=== PATIENT | female | born 2000 | race Caucasian/White ===

== ENCOUNTER 2025-01-26 14:14 | Emergency (ER) | payer BC, SELFPAY ==
--- OUTSIDE RECORDS SUMMARY | 2025-01-26 14:18 | XMS_ITS | Clinical Summary ---
Author Organization [facility] Address [address] [place] [address] Care Team Providers Care Friction Welding Machine Operator Name Role Phone SriramElham ríos Primary Care Provider [phone]- [phone] Allergies No known active allergies Medications sulfacetamide sodium-sulfur (SUMAXIN) 8-4 % suspension WASH TO AFFECTED AREA ON BODY ONCE DAILY LATHER AND LET SIT FOR SEVERAL MINUTES BEFORE RINSING 2 Active loratadine (CLARITIN) 10 mg tablet Take 1 Tablet (10 mg) by mouth once daily. 4 Active escitalopram oxalate (LEXAPRO) 20 mg tabletIndication s:Anxiety,Depres júnior, unspecified depression type Take 1 Tablet (20 mg) by mouth at bedtime. 90 Tablet 5 Active famotidine (PEPCID) 20 mg tabletIndication s:Increased stomach acid Take 1 Tablet (20 mg) by mouth 2 times daily if needed for GI Upset or Heartburn. 60 Tablet 1 5 Active Hospital, Clinic, or Other Facility Administered Medication Ordered Dose Route Frequency Start Date End Date Status levonorgestreL (KYLEENA) intrauterine (5 years) IUD 1 DeviceIndications: contraception 1 Device IU Q 5 YEARS 05/12/2021 Active Active Problems Problem Noted Date Diagnosed Date Pap smear for cervical cancer screening 04/15/20 24 Overview (04/15/2024): 03/2024 NIL Plan: Pap due 03/2027 Increased stomach acid 02/24/2021 Overview (02/24/2021): (+) Shields test in 2019 at [place] [facility] Dysmenorrhea 02/24/2021 Acne vulgaris 02/24/2021 Resolved Problems Problem Noted Date Diagnosed Date Resolved Date Fracture of finger, proximal, closed 09/10/2013 08/01/2024 Encounters Date Type Department Care Team Description 01/26/2025 Nurse Triage [facility] [address] [place] [address] Elham Bhatia, DO Abdominal Pain 01/20/2025 Refill [facility] [address] [place] [address] Elham Bhatia, Refill Request (Escitalopram 10mg) 12/24/2024 Refill [facility] [address] [place] [address] Elham Bhatia, Refill Request (Famotidine) 11/26/2024 3:40 PM TUNGSTEN TENDER Telemedicine [facility] [address] [place] [address] Elham Bhatia, DO Depression (Lexapro 10 mg, pantoprazole 40 mg as needed) 11/21/2024 Travel 11/05/2024 Travel from Last 3 Months Immunizations Immunization Administration Dates Next Due COVID-19 vaccine (Aerovance-Bio NTech 30mcg/0.3mL) 12YO+ BIVALENT PF, MDV 06/13/2023 DTaP 02/12/2008, 4,06/01/2003,04/02,01/19/2003 HIB-HepB (Comvax) 03/08/2004,04/02/2003,01/20/20 03 HPV 9 (Gardasil 9) 04/21/2016,06/02/2015 Hepatitis A (Peds) 09/04/2018,04/21/2016 Human Papilloma Virus Vaccine 04/23/2015 INFLUENZA, IIV3 PF (AGE >= 6 MO) 08/01/2024 Inactivated Polio Vaccine 02/12/2008,01/2003,04/02/2003,01/19 Influenza A (H1N1), Live Intranasal 11/08/2009,1 11/16/2008 Influenza, IIV3 (Age >=3 years) 10/12/2010,09/09 Influenza, IIV4 07/04/2023,09/16/2019,08/15/2018 MENINGOCOCCAL VACCINE 2 VIAL 2MO-55YO (MENVEO) 09/16/2019,04/23/2015 MMR 02/12/2008,12/10/2003 Pneumococcal conj 7-Valent (Prevnar 7) 3,04/02/2003,01/19/2003 Tdap 04/23/2015 Varicella Vaccine 04/23/2015,12/10/2003 Family History Medical History Relation Name Comments Good Health Brother Good Health Father Celiac disease Mother Relation Name Status Comments Brother Father Mother Social History Tobacco Use Types Packs/Day Years Used Date Smoking Tobacco: Never Smokeless Tobacco: Never Tobacco Cessation:Counseling Given: Yes Alcohol Use Standard Drinks/Week Comments Yes 0 (1 standard drink = 0.6 oz pur e alcohol) once per week PHQ-2 Answer Date Recorded PHQ-2 TOTAL SCORE 0 11/26/2024 Social Connections Answer Date Recorded Do you often feel lonely or isolated from those around you? 0 02/11/2024 Financial Resource Strain Answer Date R ecorded Difficulty of Paying Living Expenses 3 02/11/2024 Difficulty of Paying Living Expenses Not on file 02/11/2024 Food Insecurity Answer Date Recorded Do you worry your food will run out before you are able to buy more? 1 02/11/2024 Transportation Needs Answer Date Record ed Does lack of transportation keep you from medica l appointments? 1 02/11/2024 Does lack of transportation keep you from work, meetings or getting things that you need? 1 02/11/2024 Housing Stability Answer Date Recorded What is your housing situation today? 1 02/11/2024 Utilities Answer Date Recorded Do you have trouble paying f or utilities (for example, heat, electricity, water, phone)? 1 02/11/2024 Comments No Sex and Gender Information Value Date Recorded Sex Assigned at Not on file Legal Sex Female 5:49 AM TUNGSTEN TENDER Gender Identity Not on file Sexual Orientation Not on file Obstetrics History Last Filed Vital Signs Vital Sign Reading Time Taken Comments Blood Pressure 104/72 08/01/2024 10:23 AM CDT Pulse 99 08/01/2024 10:23 AM CDT Temperature 37.1 C (98.7 F) 09/16/2021 10:50 AM TUNGSTEN TENDER Respiratory Rate - - Oxygen Saturation 99% 04/04/2024 3:01 PM CDT Inhaled Oxygen Concentration - - Weight 60.1 kg (132 lb 9.6 oz) 08/01/2024 10:23 AM CDT Height 175.6 cm (5' 9.13) 04/04/2024 3:01 PM CD T Body Mass Index 19.51 04/04/2024 3:01 PM CDT Plan of Treatment Health Maintenance Due Date Last Done Comments COVID-19 vaccine series () 06/29/2024 06/13/2023 BMI (ht and wt on same day) for age 18+ 04/04/2025 04/04/2024, 05/05/2021 Chlamydia for age 16-24 04/04/2025 04/04/20 24, 05/31/2022, 05/05/2021 Tetanus booster 04/23/2025 04/23/2015 Depression screening for age 12+ 11/26/2025 11/26/2024, 08/01/2024, 07/04/2024, Additional history exists Pap test for age 21-65 04/04/2027 04/04/2024 Pneumococcal series for age 6-49 Aged Out 06/01/2003, 04/02/2003, 01/19/2003 No longer eligible based on patient's age to complete this topic Tdap Completed 04/23/2015 HPV series for age 9-26 Completed 04/21/20 16, 06/02/2015, 04/23/2015 HIV for age 15-65 Completed 04/04/2024 Hepatitis C screening for age 18-79 Completed 04/04/2024 Influenza Vaccine Completed 08/01/2024, , 09/16/2019, Additional history exists Procedures Procedure Name Priority Date/Time Associated Diagnosis Comments ANTI HIV 1/2 Routine 04/04/2024 3:36 PM CDT Screening for HIV (human immunodeficiency virus) ANTI HCV Routine 04/04/2024 3:36 PM CDT Need for hepatitis C screening test GC CHLAMYDIA TRACH PROBE Routine 04/04/2024 3:22 PM CDT Screening for chlamydial disease MEDICAL/SURGERY REGISTERED NURSE THIN PREP PAP SCREEN IMAGED Routine 04/04/2024 3:22 PM CDT Screening for cervical cancer from Last 3 Months or Most Recently Relevant to Health Maintenance Results * ANTI HCV (04/04/2024 3:36 PM CDT) Pathologist [facility] HEPATITIS C ANTIBODY Non-Reacti ve Non-React nirmala 04/04/2024 10:25 PM CDT [facility] Comment:Please note, per www .CDC.gov: If a patient is known to be at high risk of HCV infection, or is symptomatic, and the physician's suspicion of HCV infection is high, HCV RNA testing is often employed and is of diagnostic value, even after an initial negative anti-HCV test result. Blood BLOOD SPECIMEN / Unknown Venipuncture / Unknown 04/04/2024 3:36 PM CDT 04/04/2024 3:36 PM CDT [employer] Sophia VASQUEZ SEND OUTS Final Result Performing Organization Address City/[facility] Co de Phone Number [facility] [address] [place] [address], [place] * ANTI HIV 1/2 [02902.0] (04/04/2024 3:36 PM CDT) Pathologist [facility] HIV-1/HIV-2 SCREEN Non-Reacti ve Non-Reacti ve 04/04/2024 10:29 PM CDT [facility] Comment:HIV-1 p24 and HIV-1/ HIV-2 Ab Not Detected. Blood BLOOD SPECIMEN / Unknown Venipuncture / Unknown 04/04/2024 3:36 PM CDT 04/04/2024 3:36 PM CDT [employer] Sophia DO SEND OUTS Final Result Performing Organization Address City/State/[facility] Co de Phone Number [facility] [address] [place] [address], [place] * MEDICAL/SURGERY REGISTERED NURSE THIN PREP PAP SCREEN IMAGED [[id number]] (04/04/2024 3:22 PM CDT) Case Report Gynecologic Cytology Report Case: [id number] Authorizing Provider: Joanne Cortes DO Collected: 04/04/2024 1522 Ordering Location: [facility] Received: 04/04/2024 1601 Clinic First Screen: [place] Specimen: MEDICAL/SURGERY REGISTERED NURSE ThinPrep Vial Screening, Cervical 04/15/2024 12:36 PM CDT [facility] [employer] [facility] INTERPRETATION/ RESULT NEGATIVE FOR INTRAEPITHELIAL LESION OR MALIGNANCY (NIL) (none) 04/15/2024 12:36 PM CDT [facility] IMEN ADEQUACY Satisfactory for evaluation Endocervical component present 04/15/2024 12:36 PM CDT [facility] [employer] [facility] Date of LMP hormonally suppressed 04/15/2024 12:36 PM CDT [facility] Last Pap Date FIRST PAP 04/15/2024 12:36 PM CDT [facility] Last Pap Result First Pap/Unknown 12:36 PM CDT [facility] ENTRAL LAB[facility] Abnormal Pap or [place] Bx in last 5 years No 04/15/2024 12:36 PM CDT [facility] Menstrual Status Hormonally Suppressed 04/15/2024 12:36 PM CDT [facility] [place] Bx Done Today No 04/15/2024 12:36 PM CDT [facility] Additional Information None given 04/15/2024 12:36 PM CDT [facility] Comment: Cytology is screened at [facility] [employer] [facility] - [address], [place] [address] and [facility] - [address], [place] [address] and [facility] - [address] [place] [address] Interpreted at [facility] [address], [place] [address] Automated Review Successful 04/15/2024 12:36 PM CDT [facility] Comment:Specimen processed s uccessfully by automated system support administrator device, ThinPrep Imaging System, [employer] Note The pap test is a screening technique, not a diagnostic procedure. It is used primarily to screen for squamous cancers and precursor lesions. Published studies have shown that it is subject to both false negative and false positive results. The pap test should not be used as the sole means to diagnose or exclude pre-malignant and malignant lesions. 04/15/2024 12:36 PM CDT [facility] Other (Cervical) Non-Blood / Unknown 04/04/2024 3:22 PM CDT 04/04/2024 4:01 PM CDT Joanne Cortes DO PATHOLOGY/CYTOLOGY Final Resu lt Performing Organization Address City/[facility]/ZIP Co de Phone Number [facility] [address] [place] [address], * GC CHLAMYDIA TRACH PROBE (04/04/2024 3:22 PM CDT) CHLAMYDIA PROBE Negative 2:51 AM CDT [facility] TRAL LABORAT[facility] N GONORRHOEAE PROBE Negative 04/05/2024 2:51 AM CDT [facility] Other VAGINAL SWAB / Unknown Non-Blood / Unknown 04/04/2024 3:22 PM CDT 04/04/2024 4:01 PM CDT Joanne Tenebril Sophia DO MICROBIOLOGY Final Result Performing Organization Address City/[facility]/ZIP Co de Phone Number [facility] [address] [place] [address], from Last 3 Months or Most Recently Relevant to Health Maintenance Insurance [facility] [address] [place] [id number] Care Teams Friction Welding Machine Operator Relationship Specialty Start Date End Date Elham Bhatia DO [address] [place] [address] PCP - General Family Practice 11/26/24
[2025-01-26 14:40] VITALS: BP 105/69; PULSE 64; RESP 18; TEMP 36.6; O2SAT 99; BMI 19.9
--- OUTSIDE RECORDS SUMMARY | 2025-01-26 15:24 | XMS_ITS | Clinical Summary ---
Author Organization [facility] Address [address] [place] [address] Care Team Providers Care Gas Stove Servicer Helper Name Role Phone SriramElham ríos Primary Care Provider +1- [phone] Allergies No known active allergies Medications sulfacetamide [...] (02/24/2021): (+) Shields test in 2019 at [place] [facility] Dysmenorrhea 02/24/2021 Acne vulgaris 02/24/2021 Resolved Problems Problem Noted Date Diagnosed Date Resolved Date Fracture of finger, proximal, closed 09/10/2013 08/01/2024 Encounters Date Type Department Care Team Description 01/26/2025 Nurse Triage [facility] [address] [place] [address] Elham Bhatia, DO Abdominal Pain 01/20/2025 Refill [facility] [address] [place] [address] Elham Bhatia, Refill Request (Escitalopram 10mg) 12/24/2024 Refill [facility] [address] [place] [address] Elham Bhatia, Refill Request (Famotidine) 11/26/2024 3:40 PM RECORDING CLERK Telemedicine [facility] [address] [place] [address] Elham Bhatia, DO Depression (Lexapro 10 mg, pantoprazole 40 mg as needed) 11/21/2024 Travel 11/05/2024 Travel from Last 3 Months Immunizations Immunization Administration Dates Next Due COVID-19 vaccine (GetJar-Bio NTech 30mcg/0.3mL) 12YO+ BIVALENT PF, MDV 06/13/2023 [...] on file Legal Sex Female 5:49 AM RECORDING CLERK Gender Identity Not on file Sexual Orientation Not on file Obstetrics History Last Filed Vital Signs Vital Sign Reading Time Taken Comments Blood Pressure 104/72 08/01/2024 10:23 AM CDT Pulse 99 08/01/2024 10:23 AM CDT Temperature 37.1 C (98.7 F) 09/16/2021 10:50 AM RECORDING CLERK Respiratory Rate - - Oxygen Saturation 99% [...] 3:22 PM CDT Screening for chlamydial disease SILVERWARE BUFFING MACHINE OPERATOR THIN PREP PAP SCREEN IMAGED Routine 04/04/2024 3:22 PM CDT Screening for cervical cancer from Last 3 Months or Most Recently Relevant to Health Maintenance Results * ANTI HCV (04/04/2024 3:36 PM CDT) Pathologist [facility] HEPATITIS C ANTIBODY Non-Reacti ve Non-React nirmala 04/04/2024 10:25 PM CDT [facility] Comment:Please note, per www .CDC.gov: [...] 3:36 PM CDT 04/04/2024 3:36 PM CDT [employer] Sophia VASQUEZ SEND OUTS Final Result Performing Organization Address City/[facility] Co de Phone Number [facility] [address] [place] [address], [place] * ANTI HIV 1/2 [22998.0] (04/04/2024 3:36 PM CDT) Pathologist [facility] HIV-1/HIV-2 SCREEN Non-Reacti ve Non-Reacti ve 04/04/2024 10:29 PM CDT [facility] Comment:HIV-1 p24 and HIV-1/ HIV-2 Ab Not Detected. Blood BLOOD SPECIMEN / Unknown Venipuncture / Unknown 04/04/2024 3:36 PM CDT 04/04/2024 3:36 PM CDT [employer] Sophia DO SEND OUTS Final Result Performing Organization Address City/State/[facility] Co de Phone Number [facility] [address] [place] [address], [place] * SILVERWARE BUFFING MACHINE OPERATOR THIN PREP PAP SCREEN IMAGED [[id number]] (04/04/2024 3:22 PM CDT) Case Report Gynecologic Cytology Report Case: [id number] Authorizing Provider: Joanne Cortes DO Collected: 04/04/2024 1522 Ordering Location: [facility] Received: 04/04/2024 1601 Clinic First Screen: [place] Specimen: SILVERWARE BUFFING MACHINE OPERATOR ThinPrep Vial Screening, Cervical 04/15/2024 12:36 PM CDT [facility] [employer] [facility] EN[facility]AL [facility] INTERPRETATION/ RESULT NEGATIVE FOR INTRAEPITHELIAL LESION OR MALIGNANCY (NIL) (none) 04/15/2024 12:36 PM CDT [facility] IMEN ADEQUACY Satisfactory for evaluation Endocervical component present 04/15/2024 12:36 PM CDT [facility] [employer] [facility] Date of LMP hormonally suppressed 04/15/2024 12:36 PM CDT [facility] Last Pap Date FIRST PAP 04/15/2024 12:36 PM CDT [facility] Last Pap Result First Pap/Unknown 12:36 PM CDT [facility] EN[facility]AL LAB[facility]AT[facility] Abnormal Pap or [place] Bx in last 5 years No 04/15/2024 12:36 PM CDT [facility] Menstrual Status Hormonally Suppressed 04/15/2024 12:36 PM CDT [facility] [place] Bx Done Today No 04/15/2024 12:36 PM CDT [facility] Additional Information None given 04/15/2024 12:36 PM CDT [facility] Comment: Cytology is screened at [facility] [employer] [facility] - [address], [place] [address] and [facility] - [address], [place] [address] and [facility] - [address] [place] [address] Interpreted at [facility] [address], [place] [address] Automated Review Successful 04/15/2024 12:36 PM CDT [facility] Comment:Specimen processed s uccessfully by automated roll clamp operator device, ThinPrep Imaging System, [employer] Note The pap test is a [...] and malignant lesions. 04/15/2024 12:36 PM CDT [facility] Other (Cervical) Non-Blood / Unknown 04/04/2024 3:22 PM CDT 04/04/2024 4:01 PM CDT Joanne Cortes DO PATHOLOGY/CYTOLOGY Final Resu lt Performing Organization Address City/[facility]/ZIP Co de Phone Number [facility] [address] [place] [address], * GC CHLAMYDIA TRACH PROBE (04/04/2024 3:22 PM CDT) CHLAMYDIA PROBE Negative 2:51 AM CDT [facility] TRAL LABORATORY N GONORRHOEAE PROBE Negative 04/05/2024 2:51 AM CDT [facility] Other VAGINAL SWAB / Unknown Non-Blood / Unknown 04/04/2024 3:22 PM CDT 04/04/2024 4:01 PM CDT Joanne Kabanchik Sophia DO MICROBIOLOGY Final Result Performing Organization Address City/[facility]/ZIP Co de Phone Number [facility] [address] [place] [address], from Last 3 Months or Most Recently Relevant to Health Maintenance Insurance [facility] [address] [place] [id number] Care Teams Gas Stove Servicer Helper Relationship Specialty Start Date End Date Elham Bhatia DO [address] [address] PCP - General Family Practice 11/26/24
--- NOTE | 2025-01-26 15:37 | CRLHL7_ITS ---
For Patients: As a result of the Century Cures Act, medical imaging exams and procedure reports are released immediately into your electronic medical record. You may view this report before your referring provider. If you have questions, please contact your health care provider. INDICATION: Right upper and lower quadrant and epigastric pain. TECHNIQUE: CT abdomen and pelvis acquired with 68 cc of Isovue 370 IV contrast. COMPARISON: None. FINDINGS: Lower chest: Unremarkable. Liver: Unremarkable. Spleen: Unremarkable. Pancreas: Unremarkable. Gallbladder and bile ducts: No calcified stones or biliary ductal dilatation. Kidneys: No urolithiasis, hydronephrosis or suspicious lesion. Adrenal glands: Unremarkable. GI tract: Mild wall thickening in the ascending and hepatic flexure of the colon, for example on coronal image 42 of series 4. No pneumatosis or free intraperitoneal gas. Normal appendix. No bowel obstruction. Lymph nodes: No pathologic lymphadenopathy. Vascular structures: Unremarkable. Pelvic Organs: Intrauterine device appears appropriately positioned. Adnexal regions and bladder as imaged are unremarkable. Trace pelvic free fluid may be physiologic. Bones: No acute or suspicious osseous abnormality. IMPRESSION: Mild colitis of the ascending colon and hepatic flexure. No complicating features evident. Dictated by Jairo Anand MD @ 01/26/2025 4:30:31 PM Please note that all CT scans at this facility use dose modulation, iterative reconstruction, and/or weight-based dosing when appropriate to reduce radiation dose to as low as reasonably achievable. Dictated by: Jairo Anand MD @ 01/26/2025 16:31:01 (Electronically Signed)
--- NOTE | 2025-01-26 15:38 | ED.ABDPAIN ---
HPI - Abdominal Pain General Chief Complaint: Abdominal Pain Stated Complaint: Severe stomach cramps Time Seen by Provider: 01/26/25 14:57 History of Present Illness HPI narrative: This 24-year-old female comes in reporting abdominal pain that began yesterday. She states that her pain is in her upper epigastric area but also in the right upper quadrant and right lower quadrant. She states that she felt feverish last evening and last night and did measure a temperature of 100.1? F. she states that the pain was 9/10 at its worst and now currently is IV 5/10 in severity. She reports that it is a constant pain. She has had some nausea but no vomiting. Related Data Home Medications ?Medication ?Instructions ?Recorded ?Confirmed pantoprazole 20 mg tablet,delayed 20 mg PO QDAY 05/27/24 05/27/24 release escitalopram oxalate 10 mg tablet 10 mg PO QPM 01/26/25 01/26/25 escitalopram oxalate 20 mg tablet 20 mg PO QPM 01/26/25 01/26/25 famotidine 20 mg tablet 20 mg PO BID PRN heartburn 01/26/25 01/26/25 Previous Rx's ?Medication ?Instructions ?Recorded ketorolac 10 mg tablet 10 mg PO TID 5 days #15 tabs 01/26/25 Allergies Allergy/AdvReac Type Severity Reaction Status Date / Time No Known Allergies Allergy Verified 01/26/25 15:57 Review of Systems Status of ROS Reports: 10 or more systems reviewed and unremarkable except as noted in History and below Narrative Constitutional: No fevers, no weight gain or loss. Eyes: No discharge. No vision changes. HENT: No congestion, no sore throat, no ear pain. Cardiovascular: No chest pain, no palpitations. Respiratory: No shortness of breath, no wheezes, no cough. Gastrointestinal: No vomiting, no diarrhea. Abdominal pain as described above. Genitourinary: No dysuria, no hematuria. Musculoskeletal: Normal range of motion. Skin: No rashes, no pruritis. Neurological: No dizziness, weakness, sensory change, speech change. Endo/Heme/Allergies: No bruising or bleeding. No polydipsia. Pysch: no suicidality, no anxiety, no insomnia. All other systems reviewed and are negative. PFSH PFSH Social History Smoking Status: Never smoker How often do you have a drink containing alcohol: monthly or less How many standard drinks containing alcohol do you have on a typical day: 1 or 2 How often do you have six or more drinks on one occasion: Less than monthly AUDIT-C Alcohol total score: 2 Non-prescribed substance use: denies use Exam Narrative: Exam Narrative: Constitutional: Well-developed, well-nourished, no acute distress. HEENT: Normocephalic, atraumatic. Neck: Normal range of motion. Nontender. Supple. Heart: Regular. No murmurs. Normal rate. Intact distal pulses. Lungs: Clear to auscultation. No chest discomfort. No wheezes, rhonchi, or rales. Abdomen: Normal bowel sounds. Tenderness most pronounced in the upper epigastric region. She also has tenderness in the right upper quadrant and right lower quadrant around McBurney's point. No rebound tenderness. Genitalia: Deferred. Back: No midline tenderness. Normal range of motion. Extremities: Normal range of motion. No injury. Skin: Intact. No rash. Warm. No erythema or pallor. Neurologic: No altered sensation. No weakness. Alert and oriented. Psychiatric: No suicidality. No anxiety or depression. No insomnia. Nursing notes and vitals signs are reviewed. Const: Vital Signs, click to edit/add: Vital Signs - 24 hr 01/26/25 14:40 Temperature 97.8 F Pulse Rate [Pulse Oximeter] 64 Respiratory Rate 18 Blood Pressure [Ri ght Upper Arm] 105/69 Pulse Oximetry 99 Oxygen Delivery Me thod Room Air Course Vital Signs Vital signs: Initial Vital Signs Temperature 97.8 F 01/26/25 14:40 Temperature Source Temporal Artery Scan 01/26/25 14:40 Pulse Rate 64 01/26/25 14:40 Respiratory Rate 18 01/26/25 14:40 Blood Pressure 105/69 01/26/25 14:40 Blood Pressure Mean 81 01/26/25 14:40 Pulse Oximetry 99 01/26/25 14:40 Oxygen Delivery Method Room Air 01/26/25 14:40 Vital Signs Temperature 97.8 F 01/26/25 14:40 Pulse Rate 64 01/26/25 14:40 Respiratory Rate 18 01/26/25 14:40 Blood Pressure 105/69 01/26/25 14:40 Pulse Oximetry 99 01/26/25 14:40 Oxygen Delivery Method Room Air 01/26/25 14:40 Temperature 97.8 F 01/26/25 14:40 Pulse Rate 64 01/26/25 14:40 Respiratory Rate 18 01/26/25 14:40 Blood Pressure 105/69 01/26/25 14:40 Pulse Oximetry 99 01/26/25 14:40 Oxygen Delivery Method Room Air 01/26/25 14:40 MDM - Abdominal Pain MDM Narrative Medical decision making narrative: This patient comes in with abdominal pain as described above. Her pain seems to be more focused in the upper epigastric region but she does have pain in her right upper and right lower quadrant. I did use bedside ultrasound and saw normal anatomy. I did discuss options going forward the patient and her grandmother present in the room. An IV was established and she did receive CT scan of the abdomen and pelvis which returns with no specific findings to explain her discomfort. There is some mild evidence of colitis in the ascending and transverse colon. The patient states that she does take from [facility] a [facility]ana[facility]. She did agree to receive a GI cocktail to treat her symptoms. I also provided a prescription for Toradol. Lab Data Labs: Lab Results 01/26/25 Range/Units 15:45 WBC 5.49 (4.50-11.00) K/uL RBC 4.68 (4.00-5.20) m/uL Hgb 13.8 (12.0-16.0) gm/dL Hct 40.8 (33.0-51.0) % MCV 87 (80-100) fL MCH 30 (26-34) pg MCHC 34 (32-36) gm/dL RDW Coeff of Sandro 11.3 L (11.5-15.5) % Plt Count 220 (140-440) K/uL Neut % (Auto) 54.0 (42.0-72.0) % Lymph % (Auto) 33.2 (20-44) % [place] % (Auto) 7.7 (0.0-11.0) % Eos % (Auto) 4.0 (0.0-7.0) % Baso % (Auto) 0.4 (0.0-3.0) % Neut # (Auto) 2.97 (1.7-7.0) K/uL Lymph # (Auto) 1.82 (0.90-2.90) K/uL [place] # (Auto) 0.40 (0.00-0.90) K/UL Eos # (Auto) 0.22 (0.00-0.50) K/uL Baso # (Auto) 0.02 (0.00-0.30) K/uL Abs Immat Gran (auto) 0.04 (0.00-0.30) K/uL Imm/Tot Granulo (auto) 0.7 % Sodium 141 (135-149) mmol/L Potassium 3.8 (3.6-5.1) mmol/L Chloride 104 (96-114) mmol/L Carbon Dioxide 29 (20-32) mmol/L Anion Gap 8 (7-15) mEq/L BUN 14 (5-24) mg/dL Creatinine 0.6 (0.5-1.5) mg/dL Estimated Creat Clear 146.38 Estimated GFR 130 ml/min Glucose 68 (60-115) mg/dL Calcium 9.2 (8.4-10.6) mg/dL Total Bilirubin 1.0 (0.1-1.5) mg/dL Direct Bilirubin 0.2 (0.0-0.5) mg/dL AST 28 (12-35) U/L ALT 19 (4-35) U/L Alkaline Phosphatase 50 (40-150) U/L Total Protein 7.3 (6.0-8.3) g/dL Albumin 4.7 (3.3-5.0) g/dL Lipase 78 (23-300) U/L Discharge Plan Discharge Clinical Impression: Abdominal pain Patient Disposition: Home, Self-Care Condition: Stable Additional Instructions: Take medication as needed and indicated. Follow up with MD return if worsening symptoms occur. Prescriptions: New ketorolac 10 mg tablet 10 mg PO TID 5 Days Qty: 15 0RF No Action pantoprazole 20 mg tablet,delayed release (DR/EC) 20 mg PO QDAY famotidine 20 mg tablet 20 mg PO BID PRN (Reason: heartburn) escitalopram oxalate 10 mg tablet 10 mg PO QPM escitalopram oxalate 20 mg tablet 20 mg PO QPM Follow Up/Referrals: Elham Bhatia DO [Primary Care Provider] - Stand Alone Forms: MyHealth Info Instructions Procedures Ultrasound Biliary exam #1: Anatomical areas examined: gallbladder, long and short axis and common bile duct Indications: RUQ/epigastric pain Exam type: limited abdominal ultrasound; RUQ Impression: normal exam
[2025-01-26 15:50] LABS: Basophils Absolute Auto 0.02 K/uL (0.00-0.30); Basophils Percent Auto 0.4 % (0.0-3.0); Eosinophils Absolute Auto 0.22 K/uL (0.00-0.50); Hematocrit 40.8 % (33.0-51.0); Hemoglobin* 13.8 gm/dL (12.0-16.0); Immature Granulocytes Abs Auto 0.04 K/uL (0.00-0.30); Immature Granulocytes Pct Auto 0.7 %; Lymphocytes Absolute Auto 1.82 K/uL (0.90-2.90); Lymphocytes Percent Auto 33.2 % (20-44); Mean Corpuscular HGB Conc 34 gm/dL (32-36); Mean Corpuscular Hemoglobin 30 pg (26-34); Mean Corpuscular Volume 87 fL (80-100); Monocytes Percent Auto 7.7 % (0.0-11.0); Neutrophils Absolute Auto 2.97 K/uL (1.7-7.0); Platelet Count* 220 K/uL (140-440); RDW Coefficient of Variation % 11.3 % (11.5-15.5); Red Blood Count 4.68 m/uL (4.00-5.20); White Blood Count* 5.49 K/uL (4.50-11.00)
[2025-01-26 15:58] LABS: Slide Review Reflex No
[2025-01-26 16:07] LABS: Albumin* 4.7 g/dL (3.3-5.0); Chloride* 104 mmol/L (96-114); Potassium* 3.8 mmol/L (3.6-5.1); Sodium* 141 mmol/L (135-149)
[2025-01-26 16:10] LABS: Alanine Aminotransferase* 19 U/L (4-35); Alkaline Phosphatase* 50 U/L (40-150); Anion Gap 8 mEq/L (7-15); Aspartate Amino Transferase* 28 U/L (12-35); Bilirubin Direct* 0.2 mg/dL (0.0-0.5); Blood Urea Nitrogen* 14 mg/dL (5-24); Calcium* 9.2 mg/dL (8.4-10.6); Carbon Dioxide* 29 mmol/L (20-32); Creatinine* 0.6 mg/dL (0.5-1.5); Est. Creatinine Clearance* 146.38; Estimated Glomerular Filt Rate 130 ml/min; Glucose* 68 mg/dL (60-115); Lipase* 78 U/L (23-300); Total Protein* 7.3 g/dL (6.0-8.3)
[2025-01-26] MEDS: GI COCKTAIL (VISC LIDO/ANTACID) 30 ML PO (17:02)
== END 2025-01-26 17:16 | disposition home or self-care (01) ==
PROVIDERS: Emergency Provider Emergency Medicine Emergency Medical Services; PCP Family Medicine
DX: R10.13 Epigastric pain (principal)
CPT/HCPCS: 36415; 74177; 76705; 80048; 80076; 83690; 85025; 99284; A9270; Q9967